=== PATIENT | female | born 1995 | race Caucasian/White ===

== ENCOUNTER 2017-12-19 19:15 | Observation (INO) | payer MEDICAID ==
[2017-12-19 19:29] VITALS: O2SAT 100
[2017-12-19] MEDS ORDERED: Sodium Chloride 0.9% 1,000 ML IV STA (20:01)
--- NOTE | 2017-12-19 20:08 | ED PDOC ---
HPI: Female Pain Time Seen by Provider: 12/19/17 19:31 Chief Complaint (Nursing): Female Genitourinary History Per: Patient History/Exam Limitations: no limitations Onset/Duration Of Symptoms: Days Current Symptoms Are (Timing): Still Present Severity: Moderate Pain Scale Rating Of: 0 Associated Symptoms: denies: Fever, Chills, Nausea, Vomiting, Chest Pain, Urinary Symptoms Additional Complaint(s): CC: vaginal bleed HPI: 22 y/o woman w/ pmh of anemia presents for vaginal bleed. Patient reports abnormal vaginal bleed daily for >1 month. Patient reports that she came in to ED due to SOB and dizziness. Patient denies LOC, fall, or other trauma. Patient reports irregular vaginal bleed since stopping depo-provera injections 2-3 years ago. Patient unsure of LMP. Patient reports using 10-12 pads daily for bleed consisting of red blood w/ many clots. Patient is , x2 , had anemia during . Patient denies history STDs or abnormal Pap smear. Patient last pap done 1 year ago. Patient denies chest pain, abdominal pain, nausea, vomiting, diarrhea, dysuria, fever, unintentional weight loss, or chills. Patient reports similar episode 1 year ago requiring transfusion of 2 units PRBC at [facility]. Patient also reports work up for abnormal bleed but does not remember official reason. PMD: none PMH: anemia (unsure of type) meds: none allergies: NKDA PSH: none Fam: reports DM2 on both sides of family, also history of lymphoma, breast cancer, and testicular cancer; denies coagulopathies SOC: denies smoking, alcohol, and drugs ROS: 12 points assessed and negative unless otherwise reported in HPI Abnormal Vaginal Bleeding: Yes Last Menstral Period: unknown : 2 Para: 2 (x2 ) Miscarriage: 0 Past Medical History Vital Signs: Last Vital Signs Temp 98 F 12/19/17 19:24 Pulse 92 H 12/19/17 19:24 Resp 16 12/19/17 19:24 BP 100/73 12/19/17 19:24 Pulse Ox 100 12/19/17 19:24 - Medical History PMH: Anemia - Family History Family History: States: Diabetes - Home Medications Home Medications: Ambulatory Orders Medication Instructions Recorded No Known Home Med 12/19/17 - Allergies Allergies/Adverse Reactions: Allergies Allergy/AdvReac Type Severity Reaction Status Date / Time shellfish derived Allergy ANGIOEDEMA Verified 12/19/17 19:29 Review of Systems ROS Statement: Except As Marked, All Systems Reviewed And Found Negative Constitutional: Negative for: Fever, Chills, Weight loss Eyes: Negative for: Pain ENT: Negative for: Ear Pain Cardiovascular: Positive for: Light Headedness. Negative for: Chest Pain, Palpitations, Edema Respiratory: Positive for: Shortness of Breath. Negative for: Cough, Hemoptysis , SOB with Exertion, Pleuritic Pain, Sputum, Wheezing Gastrointestinal: Negative for: Nausea, Vomiting, Abdominal Pain, Diarrhea, Constipation, Melena, Hematochezia Genitourinary Female: Negative for: Dysuria, Frequency Skin: Negative for: Rash Neurological: Positive for: Dizziness Physical Exam - Reviewed Nursing Documentation Reviewed: Yes Vital Signs Reviewed: Yes - Physical Exam Appears: Positive for: No Acute Distress Head Exam: Positive for: ATRAUMATIC, NORMAL INSPECTION, NORMOCEPHALIC Skin: Positive for: Dry, Pallor Eye Exam: Positive for: Other (pale conjunctiva) ENT: Positive for: Other (pale oral mucosa, cheilitis) Neck: Positive for: Normal, Painless ROM, Supple Cardiovascular/Chest: Positive for: Regular Rate, Rhythm. Negative for: Chest Non Tender, Edema, Murmur, Irregularly Irregular Respiratory: Positive for: Normal Breath Sounds. Negative for: Decreased Breath Sounds, Accessory Muscle Use, Crackles, Rales, Rhonchi, Wheezing, Respiratory Distress Pulses-Carotid (L): 2+ Pulses-Carotid (R): 2+ Pulses-Post. Tibialis (L): 2+ Pulses-Post. Tibialis (R): 2+ Pulses-Radial (L): 2+ Pulses-Radial (R): 2+ Gastrointestinal/Abdominal: Positive for: Normal Exam, Bowel Sounds, Soft. Negative for: Tenderness, Organomegaly, Mass, Distended, Guarding, Rebound, Hernia, Asicites Extremity: Positive for: Normal ROM, Capillary Refill (<2 secs). Negative for: Tenderness, Pedal Edema Neurologic/Psych: Positive for: Alert, director community center II-XII, Oriented - Laboratory Results Result Diagrams: 12/19/17 20:19 12/19/17 20:19 - ECG O2 Sat by Pulse Oximetry: 100 Medical Decision Making Medical Decision Makin22 y/o woman w/ pmh of anemia presents for vaginal bleed. Most likely 2/2 iron deficiency anemia vs. dehydration CBC: 4.8>6.2/20.3<279, MCV 65.5 CMP: 141/3.6, 103/24, 13/0.6, glucose 91 ABO/Rh: PT: 11.6 INR: 1.0 PTT: 28.6 pelvic U/S IVF NS 1L bolus re-evaluate Hb 6.2 SLICING MACHINE FEEDER consulted, Dr Curtis, recommendations appreciated - start premarin 25 mg IV Q12 until bleed stops - 2 units PRBC - f/u pelvic U/S - prempro OCPs upon discharge - SLICING MACHINE FEEDER f/u upon discharge - consider blood dyscrasias work up - admit to Tele under observation Disposition - Clinical Impression Clinical Impression: Abnormal uterine and vaginal bleeding, unspecified - Patient ED Disposition Is Patient to be Admitted: Yes - Disposition Disposition Time: 21:49 Condition: STABLE - POA Present On Arrival: None
[2017-12-19 20:32] LABS: BASO % 0.5 % (0.0-2.0); EOS % 0.2 % (0.0-4.0); LYMPH # 2.3 K/uL (1.0-4.3); LYMPH % 47.8 % (20.0-40.0); MEAN CELL VOLUME 65.5 fl (81.0-99.0); MEAN CORPUSCULAR HEMOGLOBIN 20.1 pg (27.0-31.0); MEAN CORPUSCULAR HGB CONC 30.7 g/dL (33.0-37.0); MEAN PLATELET VOLUME 8.3 fl (7.2-11.7); MONO # 0.6 K/uL (0.0-0.8); MONO % 12.5 % (0.0-10.0); NEUT # 1.9 K/uL (1.8-7.0); NRBC % 0.3 % (0.0-0.0); RBC 3.11 Mil/uL (3.80-5.20); RED CELL DISTRIBUTION WIDTH 19.2 % (11.5-14.5); WHITE BLOOD COUNT 4.8 K/uL (4.8-10.8)
[2017-12-19 20:38] LABS: HEMOGLOBIN 6.2 g/dL (12.0-16.0)
[2017-12-19 20:41] LABS: ALB/GLOB RATIO 1.1 (1.0-2.1); ALBUMIN 4.1 g/dL (3.5-5.0); ALT/SGPT 40 U/L (9-52); AST/SGOT 25 U/L (14-36); BLOOD UREA NITROGEN 13 mg/dl (7-17); CALCIUM 8.8 mg/dL (8.4-10.2); GFR AFRICAN-AMERICAN > 60; GFR NON-AFRICAN AMERICAN > 60
[2017-12-19 20:48] LABS: PARTIAL THROMBOPLASTIN TIME 28.6 Seconds (25.6-37.1); PROTHROMBIN TIME 11.6 Seconds (9.8-13.1)
--- NOTE | 2017-12-19 21:33 | CP.PCM.CON ---
<Ashwin Flores - Last Filed: 12/19/17 21:31> History of Present Illness - History of Present Illness History of Present Illness: CC: vaginal bleed HPI: 22 y/o woman w/ pmh of anemia presents for vaginal bleed. Patient reports abnormal vaginal bleed daily for >1 month. Patient reports that she came in to ED due to SOB and dizziness. Patient denies LOC, fall, or other trauma. Patient reports irregular vaginal bleed since stopping depo-provera injections 2-3 years ago. Patient unsure of LMP. Patient reports using 10-12 pads daily for bleed consisting of red blood w/ many clots. Patient is , x2 , had anemia during . Patient denies history STDs or abnormal Pap smear. Patient last pap done 1 year ago. Patient denies chest pain, abdominal pain, nausea, vomiting, diarrhea, dysuria, fever, unintentional weight loss, or chills. Patient reports similar episode 1 year ago requiring transfusion of 2 units PRBC at [facility]. Patient also reports work up for abnormal bleed but does not remember official reason. PMD: none PMH: anemia (unsure of type) meds: none allergies: NKDA PSH: none Fam: reports DM2 on both sides of family, also history of lymphoma, breast cancer, and testicular cancer; denies coagulopathies SOC: denies smoking, alcohol, and drugs ROS: 12 points assessed and negative unless otherwise reported in HPI Review of Systems - Review of Systems All systems: reviewed and no additional remarkable complaints except - Constitutional Constitutional: As Per HPI. absent: Chills, Fever, Headache, Weight Loss - Cardiovascular Cardiovascular: Dyspnea, Lightheadedness. absent: Chest Pain, Palpitations - Respiratory Respiratory: Dyspnea. absent: Cough, Hemoptysis, Dyspnea on Exertion, Wheezing - Gastrointestinal Gastrointestinal: absent: Abdominal Pain, Diarrhea, Nausea, Vomiting - Genitourinary Genitourinary: absent: Dysuria - Reproductive: Female Reproductive:Female: As Per HPI, Menses Variable, Heavy Menses - Menstruation Menstruation: As Per HPI, Heavy Menses, Abnormal Vaginal Bleeding - Integumentary Integumentary: absent: Rash - Neurological Neurological: Dizziness Past Patient History - Past Social History Smoking Status: Never Smoked - HEMATOLOGICAL/ONCOLOGICAL Hx Anemia: Yes - PSYCHIATRIC Hx Substance Use: No - SURGICAL HISTORY Hx Surgeries: No - ANESTHESIA Hx Anesthesia: No Meds Allergies/Adverse Reactions: Allergies Allergy/AdvReac Type Severity Reaction Status Date / Time shellfish derived Allergy ANGIOEDEMA Verified 12/19/17 19:29 Physical Exam - Constitutional Appears: Non-toxic, No Acute Distress - Head Exam Head Exam: ATRAUMATIC, NORMAL INSPECTION, NORMOCEPHALIC - Eye Exam Eye Exam: EOMI, PERRL Pupil Exam: PERRL Additional comments: conjunctival pallor - ENT Exam ENT Exam: Mucous Membranes Dry - Neck Exam Neck exam: Positive for: Full Rom. Negative for: Tenderness - Respiratory Exam Respiratory Exam: Clear to Auscultation Bilateral, NORMAL BREATHING PATTERN. absent: Accessory Muscle Use, Decreased Breath Sounds, Rales, Rhonchi, Wheezes, Respiratory Distress - Cardiovascular Exam Cardiovascular Exam: REGULAR RHYTHM, RRR. absent: Tachycardia - GI/Abdominal Exam GI & Abdominal Exam: Normal Bowel Sounds, Soft. absent: Distended, Tenderness - Exam Speculum exam: Vaginal Bleeding. absent: Cervical Discharge Bimanual exam: absent: Adenexal Mass, Adnexal, Cervical Motion Tendernes, Uterine Enlargement, Uterine Tenderness Additional comments: Automatic Tire Tester present Vanessa Evans RN - Expanded Exam Expanded Speculum exam: cervical OS closed, vaginal bleeding - Neurological Exam Neurological exam: Alert, Normal Gait, Oriented x3 - Skin Skin Exam: Dry, Intact, Pallor Additional comments: breast exam: public health dentist present Vanessa Evans RN, no lymphadenopathy, no masses, no nipple bleed/discharge, no skin changes, no inverted nipple, no tenderness Results - Vital Signs Recent Vital Signs: Last Vital Signs Temp 98 F 12/19/17 19:24 Pulse 92 H 12/19/17 19:24 Resp 16 12/19/17 19:24 BP 100/73 12/19/17 19:24 Pulse Ox 100 12/19/17 21:29 - Labs Result Diagrams: 12/19/17 20:19 12/19/17 20:19 Labs: Laboratory Results - last 24 hr 12/19/17 12/19/17 12/19/17 20:19 20:19 20:19 WBC 4.8 RBC 3.11 L Hgb 6.2 L* Hct 20.3 L MCV 65.5 L MCH 20.1 L MCHC 30.7 L RDW 19.2 H Plt Count 279 MPV 8.3 Neut % (Auto) 39.0 L Lymph % (Auto) 47.8 H Grand % (Auto) 12.5 H Eos % (Auto) 0.2 Baso % (Auto) 0.5 Neut # (Auto) 1.9 Lymph # (Auto) 2.3 Grand # (Auto) 0.6 Eos # (Auto) 0.0 Baso # (Auto) 0.0 PT 11.6 INR 1.0 APTT 28.6 Sodium 141 Potassium 3.6 Chloride 103 Carbon Dioxide 24 Anion Gap 18 BUN 13 Creatinine 0.6 L Est GFR ( Amer) > 60 Est GFR (Non-Af Amer) > 60 Random Glucose 91 Calcium 8.8 Total Bilirubin 0.5 AST 25 ALT 40 Alkaline Phosphatase 52 Total Protein 7.8 Albumin 4.1 Globulin 3.7 Albumin/Globulin Ratio 1.1 Assessment & Plan - Assessment and Plan (Free Text) Assessment: 22 y/o woman w/ pmh of anemia presents for vaginal bleed Plan: abnormal uterine bleed - CBC: Hb 6.2, MCV 65.5 - CMP, coags WNL - urine negative - breast exam negative for masses or tenderness - given IVF NS 1L bolus - consented, typed and crossmatched for 2 units PRBCs - start premarin 25 mg IV Q12 until bleed stops - f/u pelvic U/S - OCPs on discharge - f/u w/ [facility] NET DEVELOPER upon discharge - consider work up for blood dyscrasias - admit MedSurg under observation - monitor for acute changes <Isaac Curtis - Last Filed: 12/19/17 22:00> Results - Vital Signs Recent Vital Signs: Last Vital Signs Temp 98 F 12/19/17 19:24 Pulse 92 H 12/19/17 19:24 Resp 16 12/19/17 19:24 BP 100/73 12/19/17 19:24 Pulse Ox 100 12/19/17 21:55 - Labs Result Diagrams: 12/19/17 20:19 12/19/17 20:19 Labs: Laboratory Results - last 24 hr 12/19/17 12/19/17 12/19/17 20:19 20:19 20:19 WBC 4.8 RBC 3.11 L Hgb 6.2 L* Hct 20.3 L MCV 65.5 L MCH 20.1 L MCHC 30.7 L RDW 19.2 H Plt Count 279 MPV 8.3 Neut % (Auto) 39.0 L Lymph % (Auto) 47.8 H Grand % (Auto) 12.5 H Eos % (Auto) 0.2 Baso % (Auto) 0.5 Neut # (Auto) 1.9 Lymph # (Auto) 2.3 Grand # (Auto) 0.6 Eos # (Auto) 0.0 Baso # (Auto) 0.0 PT 11.6 INR 1.0 APTT 28.6 Sodium 141 Potassium 3.6 Chloride 103 Carbon Dioxide 24 Anion Gap 18 BUN 13 Creatinine 0.6 L Est GFR ( Amer) > 60 Est GFR (Non-Af Amer) > 60 Random Glucose 91 Calcium 8.8 Total Bilirubin 0.5 AST 25 ALT 40 Alkaline Phosphatase 52 Total Protein 7.8 Albumin 4.1 Globulin 3.7 Albumin/Globulin Ratio 1.1 Assessment & Plan - Assessment and Plan (Free Text) Plan: OB HOSPITALIST ON-CALL This patient was seen and examined with PGY2. Agree with note. Discussion with patient about follow up with her [facility] DEVELOPER as outpatient. She had used bith control patches for 2-3 mo but did not refill medications. Advised that she follows up with [facility]EL[facility] 1-2weeks after discharge for terminal carman management - possible IUD, patch, ring, Seasonique. She understood. - Date & Time Date: 12/19/17 Time: 22:00
--- NOTE | 2017-12-20 09:53 | US ---
HISTORY: severe vaginal bleeding COMPARISON: None available. TECHNIQUE: Grayscale, color Doppler and spectral evaluation the pelvis performed transvaginally FINDINGS: UTERUS: Measures 8.7 x 6.4 x 4.9 cm. Anteverted. Normal in size and appearance. No fibroid or other mass lesion seen. ENDOMETRIUM: Measures 19 mm in diameter. Unremarkable. CERVIX: No cervical abnormality identified. RIGHT OVARY: Measures 4.0 x 4.1 x 2.2 cm. No solid mass. Normal flow. LEFT OVARY: Measures 4.4 x 4.6 x 2.2 cm. No solid mass. Normal flow. FREE FLUID: No significant free fluid noted. OTHER FINDINGS: None. IMPRESSION: Prominent endometrium measuring up to 1.9 cm. Otherwise, unremarkable pelvic ultrasound.
[2017-12-20 11:06] LABS: BASO % 0.3 % (0.0-2.0); EOS % 0.5 % (0.0-4.0); LYMPH # 1.8 K/uL (1.0-4.3); LYMPH % 28.2 % (20.0-40.0); MEAN CELL VOLUME 72.8 fl (81.0-99.0); MEAN CORPUSCULAR HEMOGLOBIN 23.9 pg (27.0-31.0); MEAN CORPUSCULAR HGB CONC 32.9 g/dL (33.0-37.0); MEAN PLATELET VOLUME 8.5 fl (7.2-11.7); MONO # 0.9 K/uL (0.0-0.8); MONO % 14.9 % (0.0-10.0); NEUT # 3.5 K/uL (1.8-7.0); NEUT % 56.1 % (50.0-75.0); NRBC % 0.2 % (0.0-0.0); RBC 3.81 Mil/uL (3.80-5.20); RED CELL DISTRIBUTION WIDTH 25.4 % (11.5-14.5); WHITE BLOOD COUNT 6.3 K/uL (4.8-10.8)
[2017-12-20 11:09] LABS: HEMOGLOBIN 9.1 g/dL (12.0-16.0)
[2017-12-20 12:03] LABS: ALBUMIN 3.5 g/dL (3.5-5.0); ALT/SGPT 25 U/L (9-52); AST/SGOT 40 U/L (14-36); BLOOD UREA NITROGEN 11 mg/dl (7-17); CALCIUM 8.3 mg/dL (8.4-10.2); GFR AFRICAN-AMERICAN > 60; GFR NON-AFRICAN AMERICAN > 60
[2017-12-20 12:04] LABS: IRON 174 ug/dL (37-170)
--- NOTE | 2017-12-20 12:12 | HP ---
CHIEF COMPLAINT: Excessive vaginal bleeding, fatigue, and shortness of breath. HISTORY OF PRESENT ILLNESS: This is a 22-year-old female known case of heavy menstruation and anemia in the past who is off all contraceptives and also having excessive amount of abnormal vaginal bleeding, almost daily for more than a month and the patient started having dizziness, shortness of breath, and feeling fatigue, so the patient was brought to the Emergency Room. Thereafter workup, the patient was found to have hemoglobin of 6.2 and the patient was admitted for further management. REVIEW OF SYSTEMS: Positive for fatigue, vaginal bleeding, shortness of breath, and dizziness. Review of systems otherwise is negative for headache, loss of consciousness, , chest pain, nausea, vomiting, diarrhea, constipation, any new joint or extremity pain. Review of systems of all other organ systems except CUSTOMER SALES SERVICE MANAGER, which includes excessive bleeding is unremarkable. PAST MEDICAL HISTORY: Significant for excessive vaginal bleeding in menstruation and anemia. PAST SURGICAL HISTORY: Unremarkable. PERSONAL HISTORY: The patient is currently nonsmoker and nondrinker. No substance abuse. MEDICATIONS: The patient is not taking any chronic long-term medications. ALLERGIES: THE PATIENT IS NOT ALLERGIC TO ANY MEDICATIONS, BUT DOES HAVE ALLERGIES TO SHELLFISH. FAMILY HISTORY: Significant for diabetes. PHYSICAL EXAMINATION: GENERAL: A well-built and well-nourished 22-year-old young female, in no acute distress. VITAL SIGNS: Temperature is afebrile. Pulse is 66, respirations are 13, blood pressure is 102/65, and saturations 100%. HEENT: Pupils are reactive to light. No JVD. No thyromegaly. No lymphadenopathy. No nystagmus. Normocephalic and atraumatic skull. HEART: S1 and S2. Normal and regular. No significant murmur, gallop or rub is heard. LUNGS: Shows good bilateral air exchange. No rales or rhonchi. ABDOMEN: Soft and nontender. No organomegaly. No fluid. Bowel sounds are plus and normal. EXTREMITIES: No edema. No calf swelling. No tenderness. No acute ischemia. FILER AND SANDER: The patient is alert, awake, and oriented x2. There is no sign of any acute gross focal motor or sensory neurological deficits. DIAGNOSTIC DATA: Available diagnostic data reviewed. Telemetry monitoring does not reveal significant arrhythmia. WBC 4.8, hemoglobin 6.2, hematocrit 23.3, and platelets 279,000. PT 11.6 and PTT 28.6. Sodium 141, potassium 3.6, chloride 102, bicarb 24, BUN 13, and creatinine 0.6. SMA-12 is unremarkable. Transvaginal ultrasound shows prominent endometrium is up to 1.9 cm, otherwise, unremarkable vaginal ultrasound. Gynecology consult noted and appreciated. Telemetry monitoring does not reveal any significant arrhythmia. ADMITTING IMPRESSION: Symptomatic severe anemia and vaginal bleeding. PLAN: As ordered. Case and plan discussed with the patient. Case and plan also discussed with nail puller. Chris Blue MD
[2017-12-20 12:20] LABS: % IRON SATURATION 43 % (20-55); TOTAL IRON BINDING CAPACITY 409 ug/dL (250-450)
[2017-12-21 05:57] LABS: MEAN CELL VOLUME 73.3 fl (81.0-99.0); MEAN CORPUSCULAR HEMOGLOBIN 23.6 pg (27.0-31.0); MEAN CORPUSCULAR HGB CONC 32.2 g/dL (33.0-37.0); RBC 3.81 Mil/uL (3.80-5.20)
[2017-12-21 06:21] LABS: ALBUMIN 3.5 g/dL (3.5-5.0); ALT/SGPT 32 U/L (9-52); AST/SGOT 30 U/L (14-36); BLOOD UREA NITROGEN 8 mg/dl (7-17); CALCIUM 8.5 mg/dL (8.4-10.2); GFR AFRICAN-AMERICAN > 60; GFR NON-AFRICAN AMERICAN > 60
[2017-12-21 08:12] VITALS: BP 108/71; PULSE 70; RESP 13; TEMP 98
--- NOTE | 2017-12-21 09:50 | PN ---
DATE: 12/21/2017 SUBJECTIVE: The patient is seen and examined. Interim events noted. The patient remains in Progressive Care Unit and telemetry monitoring, but . She feels much better. No chest pain. No shortness of breath. No dizziness. No weakness. PHYSICAL EXAMINATION: GENERAL: The patient is in no acute distress. VITAL SIGNS: Stable. No orthostatic changes. HEART: S1 and S2 normal and regular. LUNGS: Good bilateral air exchange. ABDOMEN: Soft and nontender. EXTREMITIES: No edema. No calf swelling. No tenderness. No acute ischemia. CENTRAL NERVOUS SYSTEM: Exam is essentially unchanged. DIAGNOSTIC DATA: Available diagnostic data reviewed. Hemoglobin did improve tonight. ASSESSMENT AND PLAN: The patient is medically stable. We will discharge the patient home today. The patient will be followed by family care physician and camera engineer. Case and plan discussed with the patient. Chris Blue MD
== END 2017-12-21 11:34 | disposition home or self-care (01) ==
LOC: H.ER 19:15 → H.ERHOLD 21:36 → H.ICU/CCU 23:47
PROVIDERS: ADMIT Internal Medicine; ATTEND Internal Medicine
DX: D64.9 Anemia, unspecified (principal); N93.9 Abnormal uterine and vaginal bleeding, unspecified; Z85.3 Personal history of malignant neoplasm of breast; Z85.72 Personal history of non-Hodgkin lymphomas; Z83.3 Family history of diabetes mellitus
CPT/HCPCS: 36430; 76830; 80053; 81025; 83540; 83550; 85025; 85027; 85610; 85730; 86850; 86870; 86900; 86920; 86921; 86922; 87081; 99285; G0378; J1410; J7040; P9051